=== PATIENT | female | born 1990 | race Caucasian/White ===

== ENCOUNTER 2025-08-30 13:49 | Observation (INO) | payer OTHER, SELFPAY ==
--- NOTE | ~2025-08-30 | CT_ITS ---
Exam: CT abdomen and pelvis with contrast Clinical History: [Upper abdominal pain ] Comparison: [ None available] Technique: Multiple axial CT images of the abdomen and pelvis were obtained with IV contrast. Sagittal and coronal reformatted images were obtained. FINDINGS: Lung bases: [Clear ] Liver: [ No mass.] [ No intrahepatic biliary duct dilatation.] Gallbladder: Cholelithiasis. No gallbladder wall thickening. Common bile duct: [ Normal caliber.] [ No stones.] Spleen: [ Within normal limits.] Pancreas: [ No mass. No pancreatic fluid collection.] Adrenals: [ No masses.] Kidneys: [ No masses. No hydronephrosis.][ ] Lymph nodes: There is an enlarged 2.1 x 2.3 x 3.7 cm left lobe para-aortic lymph node. Stomach, small bowel and colon: Mild thickening of the edwards of the descending colon and sigmoid colon. Peritoneum cavity: [ No mesenteric fat stranding or fluid.] Bladder: [ Unremarkable.] Osseous structures: [ No acute fracture or destructive lesion.] [ Multilevel degenerative change in the visualized spine.] Abdominal aorta: [ No aneurysm.] Additional findings: [ None of significance.] IMPRESSION: 1. There is an enlarged 2.1 x 2.3 x 3.7 cm left low para-aortic lymph node or mass. Differential includes inflammatory/infectious process or malignant process. Consider a PET/CT. 2. Mild thickening of the edwards of the descending and sigmoid colon. Differential includes incomplete bowel wall distention versus colitis. 3. Cholelithiasis. No gallbladder wall thickening or pericholecystic fluid. Reviewed, dictated and finalized at location Q. IMPRESSION: 1. There is an enlarged 2.1 x 2.3 x 3.7 cm left low para-aortic lymph node or m ass. Differential includes inflammatory/infectious process or malignant process . Consider a PET/CT. 2. Mild thickening of the edwards of the descending and sigmoid colon. Differenti al includes incomplete bowel wall distention versus colitis. 3. Cholelithiasis. No gallbladder wall thickening or pericholecystic fluid.
--- NOTE | ~2025-08-30 | US_ITS ---
EXAMINATION: US right upper quadrant DATE: 08/30/2025 20:10 INDICATION: Upper abdominal pain and vomiting TECHNIQUE: Multiple grayscale and Doppler ultrasound images of the abdomen were obtained. COMPARISON: CT dated 08/30/2025 FINDINGS: The pancreatic head and body are normal in appearance. The pancreatic tail is not visualized. The visualized proximal inferior vena cava is normal. Liver has normal echogenicity and contour, with a smooth surface. No liver lesion identified. No intrahepatic biliary duct dilation suspected. Portal venous flow was seen in the hepatopetal, normal direction and has normal Doppler waveform. There is a large shadowing gallstone at the neck of the otherwise normal- appearing gallbladder. This appears to change in position when compared with the CT from 4 hours prior. No abnormal gallbladder wall thickening. No pericholecystic fluid evident on the sonographic images or surrounding inflammatory stranding on the prior CT to elevate suspicion for acute cholecystitis. The common bile duct measures 3 mm, which is normal. Sonographic Greene sign was reported as positive by the tool smith. IMPRESSION: 1. Cholelithiasis with a normal-appearing gallbladder with positive sonographic Greene sign which is equivocal for acute cholecystitis. Consider HIDA scan for further evaluation. Reviewed, dictated and finalized at location A.
[2025-08-30 14:11] VITALS: BP 115/86; PULSE 65; RESP 16; TEMP 36.5; O2SAT 100
--- NOTE | 2025-08-30 14:12 | ED_ITS ---
HPI - Nausea/Vomiting/Diarrhea General Chief complaint: Nausea/Vomiting/Diarrhea <Hai Cobos APRN - Last Filed: 08/30/25 14:14> Stated complaint: N/V-abd pain since 299 <Hai Cobos SENIOR TECHNICAL EDITOR - Last Filed: 08/30/25 14:14> Time Seen by Provider: 08/30/25 19:17 <Hai Cobos APRN - Last Filed: 08/30/25 14:14> Focused HPI: 35 old presents ER complaining of upper abdominal pain began at this morning. States several hours later began experiencing multiple episodes of vomiting. States the most recent episode of passing of pain down small amounts of bile except blood. Denies fevers. States the abdominal pain radiates into her back. GENERAL: Well-appearing, well-nourished, and in no acute distress. HEAD: Normocephalic, atraumatic. CHEST: Clear to auscultation. No respiratory distress. HEART: Regular rate and rhythm. NEURO: Alert and oriented x3. Patient screened in triage and initial orders placed. Additional care and disposition to be based upon diagnostic testing and treatment. <Hai Cobos SENIOR TECHNICAL EDITOR - Last Filed: 08/30/25 14:14> Focused HPI: 35 old presents ER complaining of upper abdominal pain began at this morning. States several hours later began experiencing multiple episodes of vomiting. States the most recent episode of vomiting contained bile and small amounts of blood. Denies fevers. States the abdominal pain radiates into her back. GENERAL: Well-appearing, well-nourished, and in no acute distress. HEAD: Normocephalic, atraumatic. CHEST: Clear to auscultation. No respiratory distress. HEART: Regular rate and rhythm. NEURO: Alert and oriented x3. Patient screened in triage and initial orders placed. Additional care and disposition to be based upon diagnostic testing and treatment. <Suzy Lazaro PA-C - Last Filed: 08/31/25 00:11> Related Data Home medications: Home Medications ?Medication ?Instructions ?Recorded ?Confirmed ?Last Taken ?Type lisdexamfetamine 50 mg capsule 50 mg PO QAM 08/30/25 1 Unknown History medroxyprogesterone 150 mg/mL 150 mg IM [id number] 08/3008/30/25 08/02/25 History intramuscular suspension <Hai Cobos APRN - Last Filed: 08/30/25 14:14> Allergies/Adverse reactions: Allergies Allergy/AdvReac Type Severity Reaction Status Date / Time milk Allergy Unknown Verified 08/31/25 00:00 <Hai Cobos APRN - Last Filed: 08/30/25 14:14> Review of Systems 2 Review of Systems: All systems reviewed & are unremarkable except as noted in HPI and below <Suzy Lazaro PA-C - Last Filed: 08/31/25 00:11> [facility] Past Medical History Medical History: Medical History (Updated 08/31/25 @ 00:11 by Suzy Lazaro PA-C) ADHD GERD (gastroesophageal reflux disease) <Hai Cobos APRN - Last Filed: 08/30/25 14:14> Surgical History Surgical History: Surgical History (Updated 08/30/25 @ 22:13 by Suzy Lazaro PA-C) H/O section <Hai Cobos APRN - Last Filed: 08/30/25 14:14> Social History Social History: Social History Smoking status: Never smoker Alcohol intake: current Drinks per week: 1 Substance use: never Lack of Transportation: No Lack of Food: Never True Current Housing: I Have Housing Concerned About Future Housing: No Difficulty Paying Gas/Electric Bills: No Difficulty Paying for Meds: No Currently Unemployed: No Education: Trade/Vocational Certificate Difficulty w/ Childcare or Family Care: No Spiritual care concerns: No <Hai Cobos APRN - Last Filed: 08/30/25 14:14> Exam 2 Narrative: GENERAL: Well-appearing, well-nourished, and in no acute distress. HEAD: Normocephalic, atraumatic. EYES: EOMI. CHEST: Clear to auscultation. No respiratory distress. No wheezes rales or rhonchi HEART: Regular rate and rhythm. No murmur heard. Normal peripheral pulses. ABDOMEN: Soft, nondistended, normal active bowel sounds. Tender to palpation in the right upper quadrant, without guarding EXTREMITIES: Normal range of motion. No edema. SKIN: Warm, dry, no rash. NEURO: No focal deficits. Alert and oriented x3. PSYCH: Normal mood and affect <Suzy Lazaro PA-C - Last Filed: 08/31/25 00:11> Course Course Emergency Course: patient with continued discomfort after morphine, toradol. will admit for further evaluation/management <Suzy Lazaro PA-C - Last Filed: 08/31/25 00:11> Consultations Consultation #1: Spoke with Dr. Spangler who will consult <Suzy Lazaro PA-C - Last Filed: 08/31/25 00:11> Date: 08/30/25 <DARLEEN Marie Last Filed: 08/31/25 00:11> Consultation #2: Spoke with hospitalist about patient and workup who accepts admission < Suzy Lazaro PA-C - Last Filed: 08/31/25 00:11> Date: 08/30/25 <Suzy Lazaro PA-C - Last Filed: 08/31/25 00:11> Vital Signs Vital signs: Vital Signs Temperature 97.7 F 08/30/25 14:11 Pulse Rate 65 08/30/25 14:11 Respiratory Rate 16 08/30/25 14:11 Blood Pressure 115/86 08/30/25 14:11 Pulse Oximetry 100 08/30/25 14:11 Oxygen Delivery Room Air 08/30/25 14:11 Temperature 97.3 F L 08/30/25 23:46 Pulse Rate 76 08/30/25 23:46 Respiratory Rate 20 08/30/25 23:46 Blood Pressure 100/57 L 08/30/25 23:46 Pulse Oximetry 100 08/30/25 23:46 Oxygen Delivery Room Air 08/30/25 17:34 <Hai Cobos, SENIOR TECHNICAL EDITOR - Last Filed: 08/30/25 14:14> Vital Signs Temperature 97.7 F 08/30/25 14:11 Pulse Rate 65 08/30/25 14:11 Respiratory Rate 16 08/30/25 14:11 Blood Pressure 115/86 08/30/25 14:11 Pulse Oximetry 100 08/30/25 14:11 Oxygen Delivery Room Air 08/30/25 14:11 Temperature 97.3 F L 08/30/25 23:46 Pulse Rate 76 08/30/25 23:46 Respiratory Rate 20 08/30/25 23:46 Blood Pressure 100/57 L 08/30/25 23:46 Pulse Oximetry 100 08/30/25 23:46 Oxygen Delivery Room Air 08/30/25 17:34 <Suzy Lazaro PA-C - Last Filed: 08/31/25 00:11> MDM - Nausea/Vomiting/Diarrhea MDM Narrative Medical decision making narrative: Patient presents the emergency department for upper abdominal pain, nausea vomiting. She is afebrile and nontoxic appearing. Her vitals are stable. CBC with leukocytosis to 14.7. Metabolic panel without concerning findings. Lipase is normal. Urine with 51-100 white blood cells, but many squamous epithelial cells. Patient does not have any urinary symptoms. Will send for culture. CT abdomen and pelvis showing cholelithiasis. Mild wall thickening of the descending and sigmoid colon. Likely incomplete bowel distension, patient does not have any diarrhea. Enlarged para-aortic lymph node. Right upper quadrant ultrasound also showing cholelithiasis, normal appearing gallbladder. Positive sonographic Greene sign. Consider HIDA scan. patient with continued discomfort after morphine, toradol. will admit for further evaluation/management <Suzy Lazaro PA-C - Last Filed: 08/31/25 00:11> Differential Diagnosis Differential diagnosis: Likely food poisoning, gastroenteritis, dehydration and other (biliary colic, pancreatitis) <Suzy Lazaro PA-C - Last Filed: 08/31/25 00:11> Lab Data Attestation: I reviewed the patient's lab results. <Suzy Lazaro PA-C - Last Filed: 08/31/25 00:11> Result diagrams: 08/30/25 16:15 08/30/25 16:15 <Hai Cobos APRN - Last Filed: 08/30/25 14:14> Labs: Lab Results 08/30/25 08/30/25 Range/Units 16:07 16:15 WBC 14.7 H (4.5-10.0) K/mm3 RBC 5.11 (4.2-5.4) M/mm3 Hgb 12.7 (12.0-15.0) g/dL Hct 40.8 (37.0-47.0) % MCV 79.8 L (80-100) fl MCH 24.9 L (26-34) pg MCHC 31.1 L (32-36) g/dl RDW 15.9 H (11.5-14.5) % Plt Count 343 (150-375) k/mm3 MPV 10.6 H (7.4-10.4) fl Immature Gran % (Auto) 0.5 (0-0.5) % Neut % (Auto) 85.9 H (45.5-73.1) % Lymph % (Auto) 10.5 L (18.3-44.2) % [place] % (Auto) 2.5 L (2.6-8.5) % Eos % (Auto) 0.1 (0-4.4) % Baso % (Auto) 0.5 (0.2-1.2) % Lymph # (Auto) 1.54 (0.9-3.2) K/mm3 [place] # (Auto) 0.4 (0.1-0.6) K/mm3 Eos # (Auto) 0.0 (0-0.3) K/mm3 Baso # (Auto) 0.1 (0.0-0.1) K/mm3 Abs Immat Gran (auto) 0.08 H (0.00-0.031) K/mm3 Absolute Neuts (auto) 12.6 H (1.3-6.7) K/mm3 Absolute Nucleated RBC 0.000 (0.0-0.012) K/mm3 Nucleated RBC % 0.0 (0.0-0.2) % Sodium 141 (137-145) mmol/L Potassium 4.3 (3.4-5.0) mmol/L Chloride 107 (98-107) mmol/L Carbon Dioxide 22 (22-30) mmol/L Anion Gap 12 (4-12) mmol/L BUN 9 (7-17) mg/dL Creatinine 0.70 (0.7-1.0) mg/dL Estim Creat Clear Calc 97 ml/min Estimated GFR > 60 (59 - ) Glucose 116 H (65-110) mg/dL Calcium 9.6 (8.4-10.2) mg/dL Total Bilirubin 0.5 (0.2-1.3) mg/dL AST 29 (14-36) U/L ALT 20 (6-35) U/L Alkaline Phosphatase 86 (38-126) U/L Total Protein 9.3 H (6.3-8.2) g/dL Albumin 4.4 (3.5-5.1) g/dL Lipase 65 (23-300) U/L Procalcitonin < 0.0 ng/mL Beta HCG, Quant < 2.39 mIU/ML Urine Color Yellow (Yellow) Urine Appearance Turbid H (Clear) Urine pH 8.5 (5.0-9.0) Ur Specific [place] 1.026 (1.001-1.035) Urine Protein 1+ H (Negative) mg/dL Urine Glucose (UA) Negative (Negative) mg/dL Urine Ketones 2+ H (Negative) mg/dL Ur Blood (Man) Negative (Negative) Urine Nitrate Negative (Negative) Urine Bilirubin Negative (Negative) Urine Urobilinogen 1.0 (<2.0) mg/dL Add Ur Microanalysis Reviewed Leukocyte Esterase Rfl 2+ H (Negative) DYANA/UL Urine RBC 0-2 (0-2) /hpf Urine WBC 51-100 H (0-3) /hpf Ur Squamous Epith Cells Many H (Few) /hpf Urine Bacteria 4+ H /hpf Urine Casts 6-10 POC Urine HCG, Qual Negative (Negative) <Hai Cobos, SENIOR TECHNICAL EDITOR - Last Filed: 08/30/25 14:14> Lab Results 08/30/25 08/30/25 Range/Units 16:07 16:15 WBC 14.7 H (4.5-10.0) K/mm3 RBC 5.11 (4.2-5.4) M/mm3 Hgb 12.7 (12.0-15.0) g/dL Hct 40.8 (37.0-47.0) % MCV 79.8 L (80-100) fl MCH 24.9 L (26-34) pg MCHC 31.1 L (32-36) g/dl RDW 15.9 H (11.5-14.5) % Plt Count 343 (150-375) k/mm3 MPV 10.6 H (7.4-10.4) fl Immature Gran % (Auto) 0.5 (0-0.5) % Neut % (Auto) 85.9 H (45.5-73.1) % Lymph % (Auto) 10.5 L (18.3-44.2) % [place] % (Auto) 2.5 L (2.6-8.5) % Eos % (Auto) 0.1 (0-4.4) % Baso % (Auto) 0.5 (0.2-1.2) % Lymph # (Auto) 1.54 (0.9-3.2) K/mm3 [place] # (Auto) 0.4 (0.1-0.6) K/mm3 Eos # (Auto) 0.0 (0-0.3) K/mm3 Baso # (Auto) 0.1 (0.0-0.1) K/mm3 Abs Immat Gran (auto) 0.08 H (0.00-0.031) K/mm3 Absolute Neuts (auto) 12.6 H (1.3-6.7) K/mm3 Absolute Nucleated RBC 0.000 (0.0-0.012) K/mm3 Nucleated RBC % 0.0 (0.0-0.2) % Sodium 141 (137-145) mmol/L Potassium 4.3 (3.4-5.0) mmol/L Chloride 107 (98-107) mmol/L Carbon Dioxide 22 (22-30) mmol/L Anion Gap 12 (4-12) mmol/L BUN 9 (7-17) mg/dL Creatinine 0.70 (0.7-1.0) mg/dL Estim Creat Clear Calc 97 ml/min Estimated GFR > 60 (59 - ) Glucose 116 H (65-110) mg/dL Calcium 9.6 (8.4-10.2) mg/dL Total Bilirubin 0.5 (0.2-1.3) mg/dL AST 29 (14-36) U/L ALT 20 (6-35) U/L Alkaline Phosphatase 86 (38-126) U/L Total Protein 9.3 H (6.3-8.2) g/dL Albumin 4.4 (3.5-5.1) g/dL Lipase 65 (23-300) U/L Procalcitonin < 0.0 ng/mL Beta HCG, Quant < 2.39 mIU/ML Urine Color Yellow (Yellow) Urine Appearance Turbid H (Clear) Urine pH 8.5 (5.0-9.0) Ur Specific [place] 1.026 (1.001-1.035) Urine Protein 1+ H (Negative) mg/dL Urine Glucose (UA) Negative (Negative) mg/dL Urine Ketones 2+ H (Negative) mg/dL Ur Blood (Man) Negative (Negative) Urine Nitrate Negative (Negative) Urine Bilirubin Negative (Negative) Urine Urobilinogen 1.0 (<2.0) mg/dL Add Ur Microanalysis Reviewed Leukocyte Esterase Rfl 2+ H (Negative) DYANA/UL Urine RBC 0-2 (0-2) /hpf Urine WBC 51-100 H (0-3) /hpf Ur Squamous Epith Cells Many H (Few) /hpf Urine Bacteria 4+ H /hpf Urine Casts 6-10 POC Urine HCG, Qual Negative (Negative) <Suzy Lazaro PA-C - Last Filed: 08/31/25 00:11> Imaging Data Radiologist's impression: ITS Impressions Abdomen/Pelvis CT 08/30/25 16:43 IMPRESSION: 1. There is an enlarged 2.1 x 2.3 x 3.7 cm left low para-aortic lymph node or mass. Differential includes inflammatory/infectious process or malignant process. Consider a PET/CT. 2. Mild thickening of the edwards of the descending and sigmoid colon. Differential includes incomplete bowel wall distention versus colitis. 3. Cholelithiasis. No gallbladder wall thickening or pericholecystic fluid. Upper Quadrant Ultrasound 08/30/25 21:24 IMPRESSION: 1. Cholelithiasis with a normal-appearing gallbladder with positive sonographic Greene sign which is equivocal for acute cholecystitis. Consider HIDA scan for further evaluation. <Suzy Lazaro PA-C - Last Filed: 08/31/25 00:11> Critical Care Time Critical Care Time Critical Care Time: No <Suzy Lazaro PA-C - Last Filed: 08/31/25 00:11> Discharge Plan Discharge Clinical Impression: Right upper quadrant abdominal pain, Lymphadenopathy Cholelithiasis Qualifiers: Cholelithiasis location: gallbladder Cholecystitis presence: without cholecystitis Biliary obstruction: without biliary obstruction Qualified Code(s): K80.20 - Calculus of gallbladder without cholecystitis without obstruction <Hai Cobos APRN - Last Filed: 08/30/25 14:14> Patient Disposition: Still a Patient <Hai Cobos APRN - Last Filed: 08/30/25 14:14> Condition: Stable <Hai Cobos APRN - Last Filed: 08/30/25 14:14>
[2025-08-30 15:55] VITALS: BP 123/80; PULSE 73; RESP 16; O2SAT 100
[2025-08-30] MEDS: ONDANSETRON INJ 4 MG/2 ML VIAL IV PUSH (16:12)
[2025-08-30 16:13] LABS: BEDSIDEPREGUCG Negative (Negative)
[2025-08-30] MEDS: FAMOTIDINE 20 MG/2 ML VIAL IV PUSH (16:14)
[2025-08-30 16:22] LABS: Hematocrit 40.8 % (37.0-47.0); Hemoglobin 12.7 g/dL (12.0-15.0); Immature Granulocyte Percent A 0.5 % (0-0.5); Lymphocytes Absolute Auto 1.54 K/mm3 (0.9-3.2); Mean Corpuscular HGB Conc 31.1 g/dl (32-36); Mean Corpuscular Hemoglobin 24.9 pg (26-34); Mean Corpuscular Volume 79.8 fl (80-100); Nucleated Red Blood Cells Absolute Auto 0.000 K/mm3 (0.0-0.012); Nucleated Red Blood Cells Perc 0.0 % (0.0-0.2); Platelet Count Result 343 k/mm3 (150-375); Red Blood Count 5.11 M/mm3 (4.2-5.4); White Blood Count 14.7 K/mm3 (4.5-10.0)
[2025-08-30 16:31] LABS: Alanine Aminotransferase 20 U/L (6-35); Albumin Level 4.4 g/dL (3.5-5.1); Alkaline Phosphatase 86 U/L (38-126); Anion Gap 12 mmol/L (4-12); Aspartate Amino Transferase 29 U/L (14-36); Bilirubin,Total 0.5 mg/dL (0.2-1.3); Blood Urea Nitrogen 9 mg/dL (7-17); Calcium 9.6 mg/dL (8.4-10.2); Carbon Dioxide 22 mmol/L (22-30); Chloride 107 mmol/L (98-107); Estimated CRCL calculation 97 ml/min; Estimated Glomerular Filt Rate > 60; Glucose 116 mg/dL (65-110); Lipase 65 U/L (23-300); Potassium 4.3 mmol/L (3.4-5.0); Sodium 141 mmol/L (137-145); Total Protein 9.3 g/dL (6.3-8.2)
--- NOTE | 2025-08-30 16:36 | PC.NURSE ---
Pt stating she threw up a couple times and there was specks of blood in it. EDP Hai Cobos APRN made available. Pt vital signs reassessed as well
[2025-08-30 16:37] VITALS: BP 136/86; PULSE 87; RESP 18; TEMP 36.5; O2SAT 100
[2025-08-30 16:47] LABS: Beta HCG Quantitative < 2.39 mIU/ML
[2025-08-30 17:11] LABS: Add Urine Microscopic? YES; Appearance Urine Turbid (Clear); Glucose Urine UA Negative (Negative); Leukocyte Esterase Ur 2+ LEU/UL (Negative); Need Manual Microscopic Reviewed; Nitrate Urine Negative (Negative); Specific Grav Ur 1.026 (1.001-1.035)
[2025-08-30 17:34] VITALS: BP 132/84; PULSE 98; RESP 18; O2SAT 100
[2025-08-30] MEDS: SODIUM CHLORIDE 0.9% IV 1,000 ML 999 ML IV CONT (17:34)
[2025-08-30] MEDS: PANTOPRAZOLE SODIUM IV 40 MG VIAL IV PUSH (19:31)
[2025-08-30] MEDS: MORPHINE SULFATE (*CRX) 4 MG/ML INJ IV PUSH (19:48)
[2025-08-30] MEDS: KETOROLAC 15 MG/ML VIAL (*BKC) IV PUSH (22:01)
[2025-08-30] MEDS: SODIUM CHLORIDE 0.9% IV 1,000 ML 125 ML IV CONT (22:33)
--- NOTE | 2025-08-30 22:46 | P.HP_ITS ---
H&P: HPI History of Present Illness Date/Time: 08/30/25 22:46 Chief Complaint: Right upper quadrant abdominal pain with nausea and vomiting Narrative: 35-year-old female with class 2 obesity, history of and no other abdominal surgeries, GERD with p.r.n. use of omeprazole, ADHD, presents to [facility] ER on 08/30/2025 as she woke up from her sleep with right upper quadrant pain which was severe and associated with nausea and vomiting multiple times. She had a speckle of blood 1 time and since then it has been bilious. Patient had 4 bowel movements today which were soft but no diarrhea otherwise. She denies fever, chest pain, shortness of breath, suprapubic pain, dysuria, foul-smelling or odd appearing urine. ER evaluation reveals a cooperative female who is hemodynamically intact and saturating well on room air. [place] [address], hemoglobin 12.7, platelets 343, Chem 7 panel unremarkable, LFTs within normal limits, beta hCG negative, urinalysis with turbid urine, many squamous cells, WBC, bacteria, leukocyte esterase, ketones. CT abdomen pelvis with contrast demonstrates enlarged para-aortic lymph node or mass, mildly thickened edwards of the descending and sigmoid colon, cholelithiasis, no gallbladder wall thickening or pericholecystic fluid. Subsequently a right upper quadrant ultrasound demonstrates cholelithiasis with positive sonographic Greene sign. She was given Protonix, morphine, Toradol, Zofran, 1 L normal saline bolus, Pepcid 20 mg IV x1. Review of Systems Review of Systems: All systems reviewed & are unremarkable except as noted in HPI and below (Subjective) [facility] Past Medical History Medical History (Updated 08/30/25 @ 22:51 by Arlene Leone MD) ADHD GERD (gastroesophageal reflux disease) Surgical History Surgical History (Updated 08/30/25 @ 22:13 by Suzy Lazaro PA-C) H/O section Meds Home Medications and Allergies Allergies Allergy/AdvReac Type Severity Reaction Status Date / Time No Known Allergies Allergy Verified 08/30/25 13:50 Vital Signs Vital Signs - 24 hr 08/30/25 14:11 08/30/25 15:55 08/30/25 16:37 Temperature 97.7 F 97.7 F Pulse Rate 65 73 87 Respiratory Rate 16 16 18 Blood Pressure 115/86 123/80 136/86 Pulse Oximetry 100 100 100 Oxygen Delivery Room Air 08/30/25 17:34 Temperature Pulse Rate 98 Respiratory Rate 18 Blood Pressure 132/84 Pulse Oximetry 100 Oxygen Delivery Room Air Exam Const: General: comfortable and no acute distress HENMT: Mouth: Yes moist mucous membranes Eyes: Pupils: Equal, round and reactive pupils present Neck: Neck: supple Resp: Effort & Inspection: normal respiratory effort Auscultation: clear to auscultation bilaterally Cardio: Rate: regular rate Rhythm: regular rhythm Heart sounds: no gallops and no murmurs GI: Inspection: non-distended GI Palp: Yes Soft to palpation and No Guarding due to palpation present (GI) Other: Hypoactive bowel sounds, positive Greene sign Extrem: General: no edema H&P: Results Labs Labs: Short CBC 08/30/25 Range/Units 16:15 WBC 14.7 H (4.5-10.0) K/mm3 Hgb 12.7 (12.0-15.0) g/dL Hct 40.8 (37.0-47.0) % Plt Count 343 (150-375) k/mm3 BMP 08/30/25 16:15 Sodium 141 Potassium 4.3 Chloride 107 Carbon Dioxide 22 BUN 9 Creatinine 0.70 Glucose 116 H Calcium 9.6 Liver Function 08/30/25 Range/Units 16:15 Total Bilirubin 0.5 (0.2-1.3) mg/dL AST 29 (14-36) U/L ALT 20 (6-35) U/L Alkaline Phosphatase 86 (38-126) U/L Albumin 4.4 (3.5-5.1) g/dL Urine 08/30/25 Range/Units 16:15 Urine Color Yellow (Yellow) Urine Appearance Turbid H (Clear) Urine pH 8.5 (5.0-9.0) Ur Specific [place] 1.026 (1.001-1.035) Urine Protein 1+ H (Negative) mg/dL Urine Glucose (UA) Negative (Negative) mg/dL Assessment and Plan Assessment and plan (1) Cholelithiasis: Code(s): K80.20 - Calculus of gallbladder without cholecystitis without obstruction Status: Acute (2) Right upper quadrant abdominal pain: Code(s): R10.11 - Right upper quadrant pain Status: Acute (3) Enlarged lymph node: Code(s): R59.9 - Enlarged lymph nodes, unspecified Status: Acute Plan 35-year-old female with class 2 obesity, history of and no other abdominal surgeries, GERD with p.r.n. use of omeprazole, ADHD, presents to [facility] ER on 08/30/2025 as she woke up from her sleep with right upper quadrant pain which was severe and associated with nausea and vomiting multiple times. She had a speckle of blood 1 time and since then it has been bilious. Patient had 4 bowel movements today which were soft but no diarrhea otherwise. She denies fever, chest pain, shortness of breath, suprapubic pain, dysuria, foul-smelling or odd appearing urine. ER evaluation reveals a cooperative female who is hemodynamically intact and saturating well on room air. [place] [address], hemoglobin 12.7, platelets 343, Chem 7 panel unremarkable, LFTs within normal limits, beta hCG negative, urinalysis with turbid urine, many squamous cells, WBC, bacteria, leukocyte esterase, ketones. CT abdomen pelvis with contrast demonstrates enlarged para-aortic lymph node or mass, mildly thickened edwards of the desce nding and sigmoid colon, cholelithiasis, no gallbladder wall thickening or pericholecystic fluid. Subsequently a right upper quadrant ultrasound demonstrates cholelithiasis with positive sonographic Greene sign. She was given Protonix, morphine, Toradol, Zofran, 1 L normal saline bolus, Pepcid 20 mg IV x1. ----- I requested General surgery be willing to consult on this patient prior to admission. NPO midnight. HIDA scan. Morphine 2 mg IV q.2 hours p.r.n.. Normal saline at 125 cc/hour. Protonix 40 mg IV q.a.m.. Zofran p.r.n. She had 4 soft stools on day of admission, possible colitis identified on CT. Continue to monitor. Urinalysis is greatly contaminated. Follow-up on urine culture or repeat urinalysis, the patient has no symptomatology to indicate infection. Leukocytosis may be reactive to dehydration or nausea or vomiting, check procalcitonin, if elevated will start antibiotics. Follow-up on para-aortic lymph node enlargement/mass. ----- Up ad bev NPO. Normal saline infusion SCDs. Patient would like to be full code Admit for observation to medical floor. Hospitalist [facility] Advance Care Plan I have confirmed that the patient's Advanced Care Plan is present, code status is documented, or surrogate decision maker is listed in patient medical record.: Yes Medication Reconciliation I have utilized all available resources to obtain, update and review the patients current medications (includes all prescriptions, OTC, herbals, cannabis, and nutritional supplements).: Yes
[2025-08-30] MEDS: MORPHINE SULFATE (*CRX) 4 MG/ML INJ 2 MG IV PUSH (23:27)
[2025-08-30 23:33] LABS: Procalcitonin < 0.0 ng/mL
[2025-08-30 23:40] VITALS: BMI 35.2
--- NOTE | 2025-08-30 23:42 | ADMGEN ---
This patient, Lisandra Pham, was admitted to Medical Room 244-. Patient/family oriented to hospital policies and general routines including ID bracelet, bed and alarms, visiting hours, pain management, procedures, bathroom and other care routines, personal items, smoking policy, room service/diet, and visiting hours. Information on how to activate the Rapid Response Team has been discussed. Patient/Family are encouraged to report perceived risks to care and to ask questions if they do not understand what they are told or what they should do.
[2025-08-30 23:46] VITALS: BP 100/57; PULSE 76; RESP 20; TEMP 36.3; O2SAT 100
[2025-08-31] VITALS (14 sets, daily range): BP systolic 102–128; BP diastolic 57–80; PULSE 69–115; RESP 18–24; TEMP 36.2–36.7; O2SAT 97–100
[2025-08-31] MEDS: MORPHINE SULFATE (*CRX) 4 MG/ML INJ 2 MG IV PUSH ×2 (05:05→10:41)
[2025-08-31] MEDS: SODIUM CHLORIDE 0.9% IV 1,000 ML 125 ML IV CONT ×2 (05:08→13:31)
[2025-08-31 05:11] LABS: Hematocrit 33.3 % (37.0-47.0); Hemoglobin 10.1 g/dL (12.0-15.0); Immature Granulocyte Percent A 0.4 % (0-0.5); Lymphocytes Absolute Auto 3.00 K/mm3 (0.9-3.2); Mean Corpuscular HGB Conc 30.3 g/dl (32-36); Mean Corpuscular Hemoglobin 24.7 pg (26-34); Mean Corpuscular Volume 81.4 fl (80-100); Nucleated Red Blood Cells Absolute Auto 0.000 K/mm3 (0.0-0.012); Nucleated Red Blood Cells Perc 0.0 % (0.0-0.2); Platelet Count Result 260 k/mm3 (150-375); Red Blood Count 4.09 M/mm3 (4.2-5.4); White Blood Count 13.1 K/mm3 (4.5-10.0)
[2025-08-31 05:42] LABS: Alanine Aminotransferase 17 U/L (6-35); Albumin Level 3.3 g/dL (3.5-5.1); Alkaline Phosphatase 64 U/L (38-126); Anion Gap 7 mmol/L (4-12); Aspartate Amino Transferase 23 U/L (14-36); Bilirubin,Total 0.6 mg/dL (0.2-1.3); Blood Urea Nitrogen 9 mg/dL (7-17); Calcium 8.5 mg/dL (8.4-10.2); Carbon Dioxide 21 mmol/L (22-30); Chloride 111 mmol/L (98-107); Estimated CRCL calculation 109 ml/min; Estimated Glomerular Filt Rate > 60; Glucose 99 mg/dL (65-110); Magnesium 1.9 mg/dL (1.6-2.3); Potassium 3.7 mmol/L (3.4-5.0); Sodium 139 mmol/L (137-145); Total Protein 6.6 g/dL (6.3-8.2)
[2025-08-31 06:20] LABS: Procalcitonin 0.0 ng/mL
--- NOTE | 2025-08-31 08:17 | P.PNIM_ITS ---
Progress Note: A&P Assessment and Plan (1) Cholelithiasis: Qualifiers: Biliary obstruction: without biliary obstruction Cholecystitis presence: without cholecystitis Cholelithiasis location: gallbladder Qualified Code(s): K80.20 - Calculus of gallbladder without cholecystitis without obstruction Code(s): K80.20 - Calculus of gallbladder without cholecystitis without obstruction Status: Acute Assessment and Plan: NPO midnight. HIDA scan. Morphine 2 mg IV q.2 hours p.r.n.. Normal saline at 125 cc/hour. Protonix 40 mg IV q.a.m.. Zofran p.r.n. 08/31: Per pt, surgery team to perform lap hailey this afternoon. HIDA cancelled. +RUQ pain, denies N/V. (2) Right upper quadrant abdominal pain: Code(s): R10.11 - Right upper quadrant pain Status: Acute Assessment and Plan: See above She had 4 soft stools on day of admission, possible colitis identified on CT. Continue to monitor. 08/31: +Greene's sign (3) Enlarged lymph node: Code(s): R59.9 - Enlarged lymph nodes, unspecified Status: Acute Assessment and Plan: Follow-up on para-aortic lymph node enlargement/mass outpatient. Plan Urinalysis is greatly contaminated. Follow-up on urine culture or repeat urinalysis, the patient has no symptomatology to indicate infection. Leukocytosis may be reactive to dehydration or nausea or vomiting, check procalcitonin, if elevated will start antibiotics. -->Procalcitonin negative Up ad bev NPO. Normal saline infusion SCDs. Patient would like to be full code Admit for observation to medical floor. Time Spent With Patient Time: 35 Subjective Date/time seen: 08/31/25 1320 Interval history: 35-year-old female with class 2 obesity, history of and no other abdominal surgeries, GERD with p.r.n. use of omeprazole, ADHD, presents to [facility] ER on 08/30/2025 as she woke up from her sleep with right upper quadrant pain which was severe and associated with nausea and vomiting multiple times. She had a speckle of blood 1 time and since then it has been bilious. Patient had 4 bowel movements today which were soft but no diarrhea otherwise. She denies fever, chest pain, shortness of breath, suprapubic pain, dysuria, foul-smelling or odd appearing urine. ER evaluation reveals a cooperative female who is hemodynamically intact and saturating well on room air. [place] [address], hemoglobin 12.7, platelets 343, Chem 7 panel unremarkable, LFTs within normal limits, beta hCG negative, urinalysis with turbid urine, many squamous cells, WBC, bacteria, leukocyte esterase, ketones. CT abdomen pelvis with contrast demonstrates enlarged para-aortic lymph node or mass, mildly thickened edwards of the descending and sigmoid colon, cholelithiasis, no gallbladder wall thickening or pericholecystic fluid. Subsequently a right upper quadrant ultrasound demonstrates cholelithiasis with positive sonographic Greene sign. She was given Protonix, morphine, Toradol, Zofran, 1 L normal saline bolus, Pepcid 20 mg IV x1. 08/31: Pt resting in bed when I entered the room. Pt continues to c/o RUQ pain especially TTP, but not nearly as bad as at the onset of the pain yesterday. Denies nausea/vomiting. Surgery team to take her to surgery this afternoon for a lap hailey. Review of Systems Review of Systems: All systems reviewed & are unremarkable except as noted in HPI and below (Subjective) Exam Const: General: comfortable and no acute distress HENMT: Other: tacky mucous membranes Eyes: Pupils: Equal, round and reactive pupils present Neck: Neck: supple Carotids: no bruits Resp: Effort & Inspection: normal respiratory effort Auscultation: clear to auscultation bilaterally Cardio: Rate: regular rate Rhythm: regular rhythm Heart sounds: no gallops and no murmurs GI: Inspection: non-distended Other: Hypoactive bowel sounds, positive Greene sign Skin: General skin exam: normal color and no rashes or lesions noted Wounds: no wounds Neuro: Cranial nerves: Yes Equal, round and reactive pupils present Speech: normal speech Motor exam (neuro): Normal motor muscle tone present throughout Sensory Exam: normal sensation Extrem: General: no edema Psych: Mental Status: mental status grossly normal Affect: normal affect Objective Data Vital Signs Vital Signs: Vital Signs - 24 hr 08/30/25 14:11 08/30/25 15:55 08/30/25 16:37 Temperature 97.7 F 97.7 F Pulse Rate 65 73 87 Respiratory Rate 16 16 18 Blood Pressure 115/86 123/80 136/86 Pulse Oximetry 100 100 100 Oxygen Delivery Room Air 08/30/25 17:34 08/30/25 23:46 08/31/25 04:00 Temperature 97.3 F L 98.0 F Pulse Rate 98 76 69 Respiratory Rate 18 20 20 Blood Pressure 132/84 100/57 L 108/59 L Pulse Oximetry 100 100 99 Oxygen Delivery Room Air Intake/Output Intake/Output: Intake & Output 08/28/25 08/29/25 08/30/25 08/31/25 23:59 23:59 23:59 23:59 Intake Total 1000 822.9 Output Total 100 Balance 1000 722.9 Meds/Results Medications: Active Medications Generic Name Dose Route Start Last Admin Trade Name Freq PRN Reason Stop Dose Admin Sodium Chloride 1,000 mls @ 125 mls/hr 08/30/25 22:20 08/31/25 05:08 Normal Saline Iv IV CONT 125 mls/hr .Q8H MANNY Administration Morphine Sulfate 2 mg 08/30/25 22:46 08/31/25 05:05 Morphine Sulfate (*Crx) 4 Mg/Ml Inj IV PUSH 2 mg Q2H PRN Administration Pain Rated 7-10 Ondansetron HCl 4 mg 08/30/25 22:52 Ondansetron Inj 4 Mg/2 Ml Vial IV PUSH Q4H PRN Nausea And Vomiting Pantoprazole Sodium 40 mg 08/31/25 09:00 Pantoprazole Sodium Iv 40 Mg Vial IV PUSH QAM [facility] Radiology Results: ITS Impressions Abdomen/Pelvis CT 08/30/25 16:43 IMPRESSION: 1. There is an enlarged 2.1 x 2.3 x 3.7 cm left low para-aortic lymph node or mass. Differential includes inflammatory/infectious process or malignant process. Consider a PET/CT. 2. Mild thickening of the edwards of the descending and sigmoid colon. Differential includes incomplete bowel wall distention versus colitis. 3. Cholelithiasis. No gallbladder wall thickening or pericholecystic fluid. Upper Quadrant Ultrasound 08/30/25 21:24 IMPRESSION: 1. Cholelithiasis with a normal-appearing gallbladder with positive sonographic Greene sign which is equivocal for acute cholecystitis. Consider HIDA scan for further evaluation. Labs Labs: Laboratory Results - last 24 hr 08/30/25 08/30/25 08/31/25 16:07 16:15 04:26 WBC 14.7 H 13.1 H RBC 5.11 4.09 L Hgb 12.7 10.1 L Hct 40.8 33.3 L MCV 79.8 L 81.4 MCH 24.9 L 24.7 L MCHC 31.1 L 30.3 L RDW 15.9 H 15.9 H Plt Count 343 260 MPV 10.6 H 11.2 H Immature Gran % (Auto) 0.5 0.4 Neut % (Auto) 85.9 H 69.6 Lymph % (Auto) 10.5 L 23.0 [place] % (Auto) 2.5 L 5.9 Eos % (Auto) 0.1 0.6 Baso % (Auto) 0.5 0.5 Lymph # (Auto) 1.54 3.00 [place] # (Auto) 0.4 0.8 H Eos # (Auto) 0.0 0.1 Baso # (Auto) 0.1 0.1 Abs Immat Gran (auto) 0.08 H 0.05 H Absolute Neuts (auto) 12.6 H 9.1 H Absolute Nucleated RBC 0.000 0.000 Nucleated RBC % 0.0 0.0 Sodium 141 139 Potassium 4.3 3.7 Chloride 107 111 H Carbon Dioxide 22 21 L Anion Gap 12 7 BUN 9 9 Creatinine 0.70 0.62 L Estim Creat Clear Calc 97 109 Estimated GFR > 60 > 60 Glucose 116 H 99 Calcium 9.6 8.5 Magnesium 1.9 Total Bilirubin 0.5 0.6 AST 29 23 ALT 20 17 Alkaline Phosphatase 86 64 Total Protein 9.3 H 6.6 Albumin 4.4 3.3 L Lipase 65 Procalcitonin < 0.0 0.0 Beta HCG, Quant < 2.39 Urine Color Yellow Urine Appearance Turbid H Urine pH 8.5 Ur Specific [place] 1.026 Urine Protein 1+ H Urine Glucose (UA) Negative Urine Ketones 2+ H Ur Blood (Man) Negative Urine Nitrate Negative Urine Bilirubin Negative Urine Urobilinogen 1.0 Add Ur Microanalysis Reviewed Leukocyte Esterase Rfl 2+ H Urine RBC 0-2 Urine WBC 51-100 H Ur Squamous Epith Cells Many H Urine Bacteria 4+ H Urine Casts 6-10 POC Urine HCG, Qual Negative Quality VTE Prophylaxis VTE prophylaxis: mechanical ordered
[2025-08-31] MEDS: PANTOPRAZOLE SODIUM IV 40 MG VIAL IV PUSH (09:11)
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
--- NOTE | 2025-08-31 13:10 | PC.NURSE ---
Report called to Cat RN in Preop.
--- NOTE | 2025-08-31 13:30 | PC.NURSE ---
On 08/31/25, the student, [Jakub Kate], provided care and completed [facility] documentation on this patient. I have reviewed the student's documentation and agree with the findings.
--- NOTE | 2025-08-31 14:07 | PC.NURSE ---
To OR via wheelchair. Voiding without difficulty.
[2025-08-31] MEDS: LACTATED RINGERS 1,000 ML 30 ML IV CONT ×3 (14:15→17:21)
--- NOTE | 2025-08-31 15:30 | WPDHPUPDATE1 ---
History and Physical Update Update Date/Time: 08/31/25 15:30 History and Physical has been reviewed, including an updated exam of the patient. There are NO changes in the patient's condition. Risks, benefits, and alternatives have been discussed and questions answered. Patient agrees to proceed with procedure. Dr. Spangler is tied up and will not be able to proceed with pt's lap hailey without significant delay. He asked me to proceed with the lap hailey. I introduced myself to the patient and explained the circumstances and she is ok with me performing her lap hailey, possible open hailey. Risks, benefits, indications, and expected outcomes were discussed with the patient and/or family members. Specific risks to include bleeding and possible need for blood transfusion, infection, bile leak, injury to other organs, common bile duct injury, and conversion to open cholecystectomy has been discussed. I have answered all their questions and they agreed to proceed with surgery as outlined above.
--- NOTE | 2025-08-31 15:33 | WPDANESEPPF ---
Anes - Initial Pre Proc Eval Procedure: Operation Date: 08/31/25 15:30 Proposed Procedures p Laparoscopic Cholecystectomy - Ludy Spangler MD Date/Time: 08/31/25 15:33 Surgeon: Arlene Leone MD Pre Op Diagnosis: Right upper quadrant abdominal pain Patient Data Age: 35 Gender: F Height: 1.57 m Weight: 87.5 kg Last Vital Signs Temp 36.4 C 08/31/25 14:15 Pulse 75 08/31/25 14:15 Resp 18 08/31/25 14:15 BP 121/80 08/31/25 14:15 Pulse Ox 100 08/31/25 14:15 O2 Del Method Room Air 08/31/25 14:15 Allergies Allergy/AdvReac Type Severity Reaction Status Date / Time milk Allergy Unknown Verified 08/31/25 00:00 Home Medications ?Medication ?Instructions ?Recorded ?Confirmed ?Type lisdexamfetamine 50 mg capsule 50 mg PO QAM 08/30/25 08/30/25 History medroxyprogesterone 150 mg/mL 150 mg IM [id number] 08/30/25 08/30/25 History intramuscular suspension Laboratory Tests 08/30/25 08/30/25 08/31/25 16:07 16:15 04:26 WBC 14.7 H K/mm3 13.1 H K/mm3 (4.5-10.0) (4.5-10.0) RBC 5.11 M/mm3 4.09 L M/mm3 (4.2-5.4) (4.2-5.4) Hgb 12.7 g/dL 10.1 L g/dL (12.0-15.0) (12.0-15.0) Hct 40.8 % 33.3 L % (37.0-47.0) (37.0-47.0) MCV 79.8 L fl 81.4 fl (80-100) (80-100) MCH 24.9 L pg 24.7 L pg (26-34) (26-34) MCHC 31.1 L g/dl 30.3 L g/dl (32-36) (32-36) RDW 15.9 H % 15.9 H % (11.5-14.5) (11.5-14.5) Plt Count 343 k/mm3 260 k/mm3 (150-375) (150-375) MPV 10.6 H fl 11.2 H fl (7.4-10.4) (7.4-10.4) Immature Gran % (Auto) 0.5 % 0.4 % (0-0.5) (0-0.5) Neut % (Auto) 85.9 H % 69.6 % (45.5-73.1) (45.5-73.1) Lymph % (Auto) 10.5 L % 23.0 % (18.3-44.2) (18.3-44.2) [place] % (Auto) 2.5 L % 5.9 % (2.6-8.5) (2.6-8.5) Eos % (Auto) 0.1 % 0.6 % (0-4.4) (0-4.4) Baso % (Auto) 0.5 % 0.5 % (0.2-1.2) (0.2-1.2) Lymph # (Auto) 1.54 K/mm3 3.00 K/mm3 (0.9-3.2) (0.9-3.2) [place] # (Auto) 0.4 K/mm3 0.8 H K/mm3 (0.1-0.6) (0.1-0.6) Eos # (Auto) 0.0 K/mm3 0.1 K/mm3 (0-0.3) (0-0.3) Baso # (Auto) 0.1 K/mm3 0.1 K/mm3 (0.0-0.1) (0.0-0.1) Abs Immat Gran (auto) 0.08 H K/mm3 0.05 H K/mm3 (0.00-0.031) (0.00-0.031) Absolute Neuts (auto) 12.6 H K/mm3 9.1 H K/mm3 (1.3-6.7) (1.3-6.7) Absolute Nucleated RBC 0.000 K/mm3 0.000 K/mm3 (0.0-0.012) (0.0-0.012) Nucleated RBC % 0.0 % 0.0 % (0.0-0.2) (0.0-0.2) Sodium 141 mmol/L 139 mmol/L (137-145) (137-145) Potassium 4.3 mmol/L 3.7 mmol/L (3.4-5.0) (3.4-5.0) Chloride 107 mmol/L 111 H mmol/L (98-107) (98-107) Carbon Dioxide 22 mmol/L 21 L mmol/L (22-30) (22-30) Anion Gap 12 mmol/L 7 mmol/L (4-12) (4-12) BUN 9 mg/dL 9 mg/dL (7-17) (7-17) Creatinine 0.70 mg/dL 0.62 L mg/dL (0.7-1.0) (0.7-1.0) Estim Creat Clear Calc 97 ml/min 109 ml/min Estimated GFR > 60 > 60 (59 - ) (59 - ) Glucose 116 H mg/dL 99 mg/dL (65-110) (65-110) Calcium 9.6 mg/dL 8.5 mg/dL (8.4-10.2) (8.4-10.2) Magnesium 1.9 mg/dL (1.6-2.3) Total Bilirubin 0.5 mg/dL 0.6 mg/dL (0.2-1.3) (0.2-1.3) AST 29 U/L 23 U/L (14-36) (14-36) ALT 20 U/L 17 U/L (6-35) (6-35) Alkaline Phosphatase 86 U/L 64 U/L (38-126) (38-126) Total Protein 9.3 H g/dL 6.6 g/dL (6.3-8.2) (6.3-8.2) Albumin 4.4 g/dL 3.3 L g/dL (3.5-5.1) (3.5-5.1) Lipase 65 U/L (23-300) Procalcitonin < 0.0 ng/mL 0.0 ng/mL Beta HCG, Quant < 2.39 mIU/ML Urine Color Yellow (Yellow) Urine Appearance Turbid H (Clear) Urine pH 8.5 (5.0-9.0) Ur Specific [place] 1.026 (1.001-1.035) Urine Protein 1+ H mg/dL (Negative) Urine Glucose (UA) Negative mg/dL (Negative) Urine Ketones 2+ H mg/dL (Negative) Ur Blood (Man) Negative (Negative) Urine Nitrate Negative (Negative) Urine Bilirubin Negative (Negative) Urine Urobilinogen 1.0 mg/dL (<2.0) Add Ur Microanalysis Reviewed Leukocyte Esterase Rfl 2+ H DYANA/UL (Negative) Urine RBC 0-2 /hpf (0-2) Urine WBC 51-100 H /hpf (0-3) Ur Squamous Epith Cells Many H /hpf (Few) Urine Bacteria 4+ H /hpf Urine Casts 6-10 POC Urine HCG, Qual Negative (Negative) Patient hx anesthesia problems: none Family hx anesthesia problems: none Results Review: All pre-operative results and documents have been reviewed as part of the pre-operative evaluation. [facility] Past Medical History Medical History (Updated 08/31/25 @ 00:11 by Suzy Lazaro PA-C) ADHD GERD (gastroesophageal reflux disease) Surgical History Surgical History (Updated 08/30/25 @ 22:13 by Suzy Lazaro PA-C) H/O section Family History Family History (Updated 08/31/25 @ 10:05 by Angie Truong RN) Mother Thyroid disease ACD (adult celiac disease) Sibling Thyroid disease Social History Social History Smoking status: Never smoker Alcohol intake: current Drinks per week: 1 Substance use: never Lack of Transportation: No Lack of Food: Never True Current Housing: I Have Housing Concerned About Future Housing: No Difficulty Paying Gas/Electric Bills: No Difficulty Paying for Meds: No Currently Unemployed: No Education: Trade/Vocational Certificate Difficulty w/ Childcare or Family Care: No Spiritual care concerns: No Anes - Eval Final PreProcedure Day of Procedure 08/31/25 15:33 Patient weight: obese Heart: regular rate and rhythm Lungs: clear to auscultation Airway: Mallampati scale class II Neurological: alert and oriented Last oral intake: >/= 8 hours ASA classification: II Emergent: no Anesthetic plan: proceed Anesthesia type and monitoring: general ETT and standard monitoring Results Review: All pre-operative results and documents have been reviewed as part of the pre-operative evaluation. Informed Consent: The patient's anesthetic plan and its attendant risks and benefits were discussed with the patient/family/POA. Questions were solicited and answers provided to the satisfaction of the patient/family/POA.
[2025-08-31] MEDS: ceFAZolin 2 GM in SODIUM CHLORIDE 0.9% IV 50 ML 100 ML IVPB (15:50)
[2025-08-31] MEDS: LIDO 1%/EPINEPHRINE 1:100,000 20 ML VIAL 30 ML INFILTRATE (16:09)
--- NOTE | 2025-08-31 16:46 | S_PTH ---
PATIENT: Lisandra Pham LOC: [id number] U#:[id number] AGE/SX: 35/F ROOM: 244 RE08/30/[address]: Arlene Leone MD : [id number] BED: 01 DIS: 09/01/2025 SPEC #: [id number] RECD: 09/01/25 10:46 STATUS: LISA REQ #: [id number] ТАТЬЯНА: 08/31/25 16:[address]: Larry Melvin DEPT: [facility] Surgical RECD BY: Krysten Perez ENTERED: 09/01/25 10:46 SP TYPE: Surgical OTHR DR: MD Ludy Munroe MD Jim J. Hong, MD SENIOR SOFTWARE ENGINEER ANALYTICS PHYSICIAN Meron Pham APRN Tissues: A - Gallbladder Procedures: Hematoxylin and Eosin Stain Gross and Microscopic Level 3
[2025-08-31] MEDS: fentaNYL CITRATE INJ (*CRX) 100 MCG/2 ML VIAL 25 MCG IV PUSH ×6 (17:28→18:10)
--- NOTE | 2025-08-31 17:34 | W.PM.PROC2 ---
Procedure Note - Detailed Date of Procedure 08/31/25 Pre-op Diagnosis Right upper quadrant abdominal pain, acute cholecystitis secondary to cholelithiasis Post-op Diagnosis Same Procedure Performed Laparoscopic cholecystectomy Surgeon Larry Melvin MD Hog Stomach Preparer Graham Jamison SA Anesthesia General Indications Patient is a 35-year-old female presents to the emergency room yesterday with several-day history of pain which were particularly became worse yesterday associated with some nausea and emesis. Imaging showed cholelithiasis but no obvious evidence of pericholecystic fluid or gallbladder wall thickening. Liver enzymes are normal. She a likely has acute cholecystitis and cholelithiasis and presents now for laparoscopic cholecystectomy. Findings Patient acutely inflamed gallbladder. It was tense with edema and erythema of the gallbladder wall. The gallbladder had to be decompressed laparoscopically before I could hold the gallbladder laparoscopic grasper. Multiple gallstones within the gallbladder. There were gallstones impacted within the neck of the gallbladder. Description of Procedure After informed consent was obtained patient brought to the operating room she was placed supine position and general endotracheal anesthesia was administered. The abdomen was then prepped and draped usual sterile fashion. A time-out was then performed correctly identifying the patient as well as procedure to be performed. She was given IV antibiotics. I then entered the abdomen left upper quadrant utilizing a 5mm Optiview port. Once inside the abdomen insufflated to adequate pneumoperitoneum of 15mmHg of CO2. I then placed additional trocar ports to include a 5mm periumbilical trocar port, a 10mm epigastric trocar port, and 2 right lateral subcostal 5mm trocar ports. The gallbladder was visualized and the gallbladder wall was edematous and erythematous. It was tense. This definitely was consistent with acute cholecystitis due to gallstones. There were some and omental adhesions to the gallbladder wall as well. A laparoscopic decompressing aspirating needle was then introduced into the abdomen through the most lateral right subcostal port site and then the dome of the gallbladder was punctured with needle. Dark green thick bile was aspirated from the gallbladder into a decompressed enough for me to grab it with a laparoscopic grasper. The gallbladder was then elevated over the right half liver towards the right shoulder. I then proceeded to strip down the omental adhesions to the gallbladder and then stripped down the visceral peritoneum off of the infundibular gallbladder in order to hold with a 2nd laparoscopic grasper to it there with lateral traction infundibulum of the gallbladder I was able to dissect down identified the cystic duct. The cystic duct was then dissected out circumferentially. The cystic artery had a anterior and posterior branch and both these branches were dissected out individually. Posterior wall the gallbladder at this point was then dissected free of the liver bed until the critical view was obtained. At this point I then milked the cystic duct to make sure there were no stones within it and the gallstones within the neck of the gallbladder were reduced. I then placed 2 clips proximally cystic duct and 2 clips distally high on infundibular gallbladder. Cystic duct was then divided Endo Yong. The anterior posterior branches cystic artery was then clipped individually and then divided as well. Gallbladder was then resected off the liver utilized electrocautery. During the dissection the posterior wall the gall bladder was entered and multiple stones spilled out the gallbladder. These were quickly captured with the stone grasper and removed from the abdomen. As I continued my dissection of the posterior wall the gallbladder off the liver there was not a good dissection plane due to the intense inflammation in the area. A portion of the posterior wall the gallbladder was left in place and the remaining portion the gallbladder was removed. Gallbladder was then placed into an Endo-Catch bag and brought out through the epigastric port site. It was passed off table sent to pathology along with the gallstones. The residual portion of the posterior wall the gallbladder and the liver bed was then fulgurated with electrocautery to obliterate the mucosa. Once this is done there was no bleeding and there is no evidence of bile leak from the liver bed or the cystic duct stump. I then aspirated the fluid from the right upper quadrant the abdomen all the blood clot. I then irrigated with copious sterile saline solution. Hemostasis was good. Then aspirated the fluid from the right upper quadrant and from the pelvis. I then placed a 15 Stateless round Roberto drain in the area the gallbladder fossa. It was brought out through the most lateral 5mm right subcostal port site. It was then secured to the skin level utilizing a 3-0 nylon sutures. I then placed Von hemostatic topical agent onto the liver bed with a laparoscopic applicator. I then removed all the trocar ports under direct visualization all port sites appeared hemostatic. The abdomen was allowed to decompress. The port sites irrigated sterile saline solution hemostasis was good. The 10mm epigastric trocar port fascial defect was closed utilizing 0 Vicryl suture at the fascial level. The port sites at the skin level were then all closed utilizing a running subcuticular 4 Monocryl suture. The incisions were then cleaned the skin glue was applied. The drain was placed to after grenade bulb suction and a drain dressing was placed. The patient tolerated the procedure well no complications. All sponges, needles, and instrument counts were correct at the end procedure. EBL was _50__cc. The patient was awakened and taken to recovery in stable and satisfactory condition. Implants None Estimated Blood Loss 50 Urine Output 100 Drains Yes (10 Stateless round ANTOINETTE drain right upper quadrant x1) Packing No Pathology Yes (Gallbladder and stones sent to pathology) Complications No immediate complications Condition Stable Disposition PACU [facility] Billing Surgery - Charge Forward: Surgery Billing
[2025-08-31] MEDS: HYDROmorphone HCL INJ (*CRX) 1 MG/ML SYR 0.5 MG IV PUSH (18:13)
[2025-08-31] MEDS: PIPERACILLIN/TAZOBACTAM SOD 3.375 GM in SODIUM CHLORIDE 0.9% IV 50 ML 100 ML IVPB (18:15)
--- NOTE | 2025-08-31 18:40 | PC.NURSE ---
Returned from OR via stretcher. Family at bedside.
[2025-08-31] MEDS: oxyCODONE HCL (*CRX) 5 MG TAB IR PO (20:18)
[2025-09-01] VITALS: BP 105/59; PULSE 77; RESP 18; TEMP 36.6; O2SAT 99
[2025-09-01] MEDS: oxyCODONE HCL (*CRX) 5 MG TAB IR PO ×4 (00:45→17:51)
[2025-09-01] MEDS: SODIUM CHLORIDE 0.9% IV 1,000 ML 100 ML IV CONT (00:45)
[2025-09-01] MEDS: PIPERACILLIN/TAZOBACTAM SOD 3.375 GM in SODIUM CHLORIDE 0.9% IV 50 ML 100 ML IVPB ×2 (00:46→09:26)
[2025-09-01 04:00] VITALS: BP 131/79; PULSE 66; RESP 18; TEMP 36.4; O2SAT 100
[2025-09-01 05:24] LABS: Hematocrit 33.1 % (37.0-47.0); Hemoglobin 10.1 g/dL (12.0-15.0); Immature Granulocyte Percent A 0.4 % (0-0.5); Lymphocytes Absolute Auto 1.49 K/mm3 (0.9-3.2); Mean Corpuscular HGB Conc 30.5 g/dl (32-36); Mean Corpuscular Hemoglobin 24.8 pg (26-34); Mean Corpuscular Volume 81.1 fl (80-100); Nucleated Red Blood Cells Absolute Auto 0.000 K/mm3 (0.0-0.012); Nucleated Red Blood Cells Perc 0.0 % (0.0-0.2); Platelet Count Result 257 k/mm3 (150-375); Red Blood Count 4.08 M/mm3 (4.2-5.4); White Blood Count 9.4 K/mm3 (4.5-10.0)
[2025-09-01 05:34] LABS: Alanine Aminotransferase 21 U/L (6-35); Albumin Level 3.4 g/dL (3.5-5.1); Alkaline Phosphatase 60 U/L (38-126); Anion Gap 10 mmol/L (4-12); Aspartate Amino Transferase 27 U/L (14-36); Bilirubin,Total 0.4 mg/dL (0.2-1.3); Blood Urea Nitrogen 6 mg/dL (7-17); Calcium 8.5 mg/dL (8.4-10.2); Carbon Dioxide 21 mmol/L (22-30); Chloride 107 mmol/L (98-107); Estimated CRCL calculation 103 ml/min; Estimated Glomerular Filt Rate > 60; Glucose 99 mg/dL (65-110); Potassium 4.0 mmol/L (3.4-5.0); Sodium 138 mmol/L (137-145); Total Protein 6.9 g/dL (6.3-8.2)
[2025-09-01 06:12] VITALS: BP 131/79; PULSE 66; RESP 18; TEMP 36.4; O2SAT 100
--- NOTE | 2025-09-01 07:37 | PM.IMPN ---
Progress Note: A&P Assessment and Plan (1) Cholelithiasis: Qualifiers: Biliary obstruction: without biliary obstruction Cholecystitis presence: without cholecystitis Cholelithiasis location: gallbladder Qualified Code(s): K80.20 - Calculus of gallbladder without cholecystitis without obstruction Code(s): K80.20 - Calculus of gallbladder without cholecystitis without obstruction Status: Acute Assessment and Plan: NPO midnight. HIDA scan. Morphine 2 mg IV q.2 hours p.r.n.. Normal saline at 125 cc/hour. Protonix 40 mg IV q.a.m.. Zofran p.r.n. 08/31: Per pt, surgery team to perform lap hailey this afternoon. HIDA cancelled. +RUQ pain, denies N/V. (2) Right upper quadrant abdominal pain: Code(s): R10.11 - Right upper quadrant pain Status: Acute Assessment and Plan: See above She had 4 soft stools on day of admission, possible colitis identified on CT. Continue to monitor. 08/31: +Greene's sign (3) Enlarged lymph node: Code(s): R59.9 - Enlarged lymph nodes, unspecified Status: Acute Assessment and Plan: Follow-up on para-aortic lymph node enlargement/mass outpatient. Plan Urinalysis is greatly contaminated. Follow-up on urine culture or repeat urinalysis, the patient has no symptomatology to indicate infection. Leukocytosis may be reactive to dehydration or nausea or vomiting, check procalcitonin, if elevated will start antibiotics. -->Procalcitonin negative Up ad bev NPO. Normal saline infusion SCDs. Patient would like to be full code Admit for observation to medical floor. Subjective Date/time seen: 09/01/25 07:37 Interval history: 35-year-old female with class 2 obesity, history of and no other abdominal surgeries, GERD with p.r.n. use of omeprazole, ADHD, presents to [facility] ER on 08/30/2025 as she woke up from her sleep with right upper quadrant pain which was severe and associated with nausea and vomiting multiple times. She had a speckle of blood 1 time and since then it has been bilious. Patient had 4 bowel movements today which were soft but no diarrhea otherwise. Review of Systems Review of Systems: All systems reviewed & are unremarkable except as noted in HPI and below (Subjective) Objective Data Vital Signs Vital Signs: Vital Signs - 24 hr 08/31/25 08:00 08/31/25 09:11 08/31/25 12:00 Temperature 97.3 F L 97.1 F L Pulse Rate 74 79 Respiratory Rate 18 20 20 Blood Pressure 107/65 102/67 Pulse Oximetry 99 99 98 Oxygen Delivery Room Air Oxygen Flow Rate 08/31/25 14:12 08/31/25 14:15 08/31/25 17:21 Temperature 97.8 F 97.6 F 97.5 F L Pulse Rate 73 75 115 H Respiratory Rate 18 18 24 H Blood Pressure 111/73 121/80 106/57 L Pulse Oximetry 99 100 100 Oxygen Delivery Room Air Simple Face Mask Oxygen Flow Rate 8 08/31/25 17:35 08/31/25 17:40 08/31/25 17:50 Temperature Pulse Rate 107 H 95 Respiratory Rate 20 20 Blood Pressure 128/74 119/70 Pulse Oximetry 100 99 Oxygen Delivery Simple Face Mask Room Air Room Air Oxygen Flow Rate 8 08/31/25 18:05 08/31/25 18:20 08/31/25 18:45 Temperature 97.2 F L 97.9 F Pulse Rate 97 94 85 Respiratory Rate 20 20 19 Blood Pressure 112/60 104/66 120/68 Pulse Oximetry 100 97 99 Oxygen Delivery Room Air Room Air Oxygen Flow Rate 08/31/25 18:45 08/31/25 19:00 08/31/25 20:00 Temperature 97.9 F 97.6 F Pulse Rate 78 80 Respiratory Rate 18 19 18 Blood Pressure 118/65 121/69 Pulse Oximetry 99 99 100 Oxygen Delivery Room Air Oxygen Flow Rate 08/31/25 20:45 09/01/25 00:00 09/01/25 04:00 Temperature 97.9 F 97.5 F L Pulse Rate 77 66 Respiratory Rate 18 18 Blood Pressure 105/59 L 131/79 Pulse Oximetry 99 100 Oxygen Delivery Room Air Oxygen Flow Rate 09/01/25 06:12 Temperature 97.5 F L Pulse Rate 66 Respiratory Rate 18 Blood Pressure 131/79 Pulse Oximetry 100 Oxygen Delivery Oxygen Flow Rate Intake/Output Intake/Output: Intake & Output 08/29/25 08/30/25 08/31/25 09/01/25 23:59 23:59 23:59 23:59 Intake Total 1000 2195.8 883.3 Output Total 1115 1330 Balance 1000 1080.8 446.7 Meds/Results Medications: Active Medications Generic Name Dose Route Start Last Admin Trade Name Freq PRN Reason Stop Dose Admin Acetaminophen 1,000 mg 08/31/25 17:27 Acetaminophen 500 Mg Tablet PO Q6H PRN Mild Pain (1-3) or Fever Hydrocodone Bitart/Acetaminophen 1 tab 08/31/25 17:27 Hydrocodone/Acetaminophen (*Crx) 5-325 Mg Tablet PO Q4H PRN Pain Rated 4-6 Sodium Chloride 1,000 mls @ 100 mls/hr 08/30/25 22:20 09/01/25 00:45 Normal Saline Iv IV CONT 100 mls/hr .Q10H MANNY Administration Piperacillin Sod/Tazobactam 50 mls @ 100 mls/hr 08/31/25 18:00 09/01/25 05:52 Sod 3.375 gm/ Sodium Chloride IVPB Infused [facility] Infusion Morphine Sulfate 4 mg 08/31/25 18:46 Morphine Sulfate (*Crx) 4 Mg/Ml Inj IV PUSH Q4H PRN Pain Rated 7-10 IF NPO Ondansetron HCl 4 mg 08/30/25 22:52 Ondansetron Inj 4 Mg/2 Ml Vial IV PUSH Q4H PRN Nausea And Vomiting Oxycodone HCl 5 mg 08/31/25 17:27 09/01/25 04:55 Oxycodone Hcl (*Crx) 5 Mg Tab Ir PO 5 mg Q4H PRN Administration Pain Rated 7-10 Pantoprazole Sodium 40 mg 09/01/25 09:00 Pantoprazole 40 Mg Tablet PO [facility] [place] Radiology Results: ITS Impressions Abdomen/Pelvis CT 08/30/25 16:43 IMPRESSION: 1. There is an enlarged 2.1 x 2.3 x 3.7 cm left low para-aortic lymph node or mass. Differential includes inflammatory/infectious process or malignant process. Consider a PET/CT. 2. Mild thickening of the edwards of the descending and sigmoid colon. Differential includes incomplete bowel wall distention versus colitis. 3. Cholelithiasis. No gallbladder wall thickening or pericholecystic fluid. Upper Quadrant Ultrasound 08/30/25 21:24 IMPRESSION: 1. Cholelithiasis with a normal-appearing gallbladder with positive sonographic Greene sign which is equivocal for acute cholecystitis. Consider HIDA scan for further evaluation. Labs Labs: Laboratory Results - last 24 hr 09/01/25 09/01/25 04:39 04:40 WBC 9.4 RBC 4.08 L Hgb 10.1 L Hct 33.1 L MCV 81.1 MCH 24.8 L MCHC 30.5 L RDW 16.0 H Plt Count 257 MPV 11.6 H Immature Gran % (Auto) 0.4 Neut % (Auto) 80.1 H Lymph % (Auto) 15.8 L [place] % (Auto) 3.4 Eos % (Auto) 0.0 Baso % (Auto) 0.3 Lymph # (Auto) 1.49 [place] # (Auto) 0.3 Eos # (Auto) 0.0 Baso # (Auto) 0.0 Abs Immat Gran (auto) 0.04 H Absolute Neuts (auto) 7.6 H Absolute Nucleated RBC 0.000 Nucleated RBC % 0.0 Sodium 138 Potassium 4.0 Chloride 107 Carbon Dioxide 21 L Anion Gap 10 BUN 6 L Creatinine 0.66 L Estim Creat Clear Calc 103 Estimated GFR > 60 Glucose 99 Calcium 8.5 Total Bilirubin 0.4 AST 27 ALT 21 Alkaline Phosphatase 60 Total Protein 6.9 Albumin 3.4 L Quality VTE Prophylaxis VTE prophylaxis: mechanical ordered
[2025-09-01] MEDS: PANTOPRAZOLE 40 MG TABLET PO (09:27)
--- NOTE | 2025-09-01 11:15 | PM.PNGS ---
Progress Note: A&P Assessment and Plan (1) Cholecystitis: Code(s): K81.9 - Cholecystitis, unspecified Status: Acute Assessment and Plan: Pod 1 status post laparoscopic cholecystectomy. A 15 Polish round Roberto drain was placed in the area of the gallbladder fossa due to some mild spillage and intense inflammation to the area. Patient tolerated the procedure well. Tolerated clear liquids. Advanced to regular diet today. Voiding appropriately. Has not walked much around the room. Encouraged ambulation. Once patient is ambulating more and tolerating a regular diet, she is surgically stable for discharge. Plan Discussed patient's case and plan of care with Dr. Melvin. Subjective Subjective Date/Time Seen: 09/01/25 11:15 Post Op day: 1 (laparoscopic cholecystectomy) Patient reports: no new complaints, feels better, still having pain and afebrile Interval history: Patient doing well today. She does complain of some pain surrounding the drain site. Voiding appropriately. No nausea or vomiting. No BM of flatus yet. Exam Const: General: comfortable and no acute distress Cardio: Rate: regular rate and bradycardic GI: Inspection: non-distended GI Palp: Yes Soft to palpation and Yes Tenderness to palpation present (GI) (epigastric, mostly around incisions) Auscultation: abnormal bowel sounds (hypoactive) Skin: General skin exam: normal color and no rashes or lesions noted Objective Data Vital Signs Vital Signs: Vital Signs - 24 hr 08/31/25 12:00 08/31/25 14:12 08/31/25 14:15 Temperature 97.1 F L 97.8 F 97.6 F Pulse Rate 79 73 75 Respiratory Rate 20 18 18 Blood Pressure 102/67 111/73 121/80 Pulse Oximetry 98 99 100 Oxygen Delivery Room Air Oxygen Flow Rate 08/31/25 17:21 08/31/25 17:35 08/31/25 17:40 Temperature 97.5 F L Pulse Rate 115 H 107 H Respiratory Rate 24 H 20 Blood Pressure 106/57 L 128/74 Pulse Oximetry 100 100 Oxygen Delivery Simple Face Mask Simple Face Mask Room Air Oxygen Flow Rate 8 8 08/31/25 17:50 08/31/25 18:05 08/31/25 18:20 Temperature 97.2 F L Pulse Rate 95 97 94 Respiratory Rate 20 20 20 Blood Pressure 119/70 112/60 104/66 Pulse Oximetry 99 100 97 Oxygen Delivery Room Air Room Air Room Air Oxygen Flow Rate 08/31/25 18:45 08/31/25 18:45 08/31/25 19:00 Temperature 97.9 F 97.9 F Pulse Rate 85 78 Respiratory Rate 19 18 19 Blood Pressure 120/68 118/65 Pulse Oximetry 99 99 99 Oxygen Delivery Room Air Oxygen Flow Rate 08/31/25 20:00 08/31/25 20:45 09/01/25 00:00 Temperature 97.6 F 97.9 F Pulse Rate 80 77 Respiratory Rate 18 18 Blood Pressure 121/69 105/59 L Pulse Oximetry 100 99 Oxygen Delivery Room Air Oxygen Flow Rate 09/01/25 04:00 09/01/25 06:12 09/01/25 09:31 Temperature 97.5 F L 97.5 F L Pulse Rate 66 66 Respiratory Rate 18 18 Blood Pressure 131/79 131/79 Pulse Oximetry 100 100 Oxygen Delivery Room Air Oxygen Flow Rate Intake/Output Intake/Output: Intake & Output 08/29/25 08/30/25 08/31/25 09/01/25 23:59 23:59 23:59 23:59 Intake Total 1000 2195.8 2235.0 Output Total 1115 1730 Balance 1000 1080.8 505.0 Meds/Results Medications: Active Medications Generic Name Dose Route Start Last Admin Trade Name Freq PRN Reason Stop Dose Admin Acetaminophen 1,000 mg 08/31/25 17:27 Acetaminophen 500 Mg Tablet PO Q6H PRN Mild Pain (1-3) or Fever Hydrocodone Bitart/Acetaminophen 1 tab 08/31/25 17:27 Hydrocodone/Acetaminophen (*Crx) 5-325 Mg Tablet PO Q4H PRN Pain Rated 4-6 Sodium Chloride 1,000 mls @ 100 mls/hr 08/30/25 22:20 09/01/25 09:28 Normal Saline Iv IV CONT 0 mls/hr .Q10H MANNY Infusion Piperacillin Sod/Tazobactam 50 mls @ 100 mls/hr 08/31/25 18:00 09/01/25 09:26 Sod 3.375 gm/ Sodium Chloride IVPB 100 mls/hr Q8H MANNY Administration Morphine Sulfate 4 mg 08/31/25 18:46 Morphine Sulfate (*Crx) 4 Mg/Ml Inj IV PUSH Q4H PRN Pain Rated 7-10 IF NPO Ondansetron HCl 4 mg 08/30/25 22:52 Ondansetron Inj 4 Mg/2 Ml Vial IV PUSH Q4H PRN Nausea And Vomiting Oxycodone HCl 5 mg 08/31/25 17:27 09/01/25 09:31 Oxycodone Hcl (*Crx) 5 Mg Tab Ir PO 5 mg Q4H PRN Administration Pain Rated 7-10 Pantoprazole Sodium 40 mg 09/01/25 09:00 09/01/25 09:27 Pantoprazole 40 Mg Tablet PO 40 mg QAM MANNY Administration Radiology Results: ITS Impressions Abdomen/Pelvis CT 08/30/25 16:43 IMPRESSION: 1. There is an enlarged 2.1 x 2.3 x 3.7 cm left low para-aortic lymph node or mass. Differential includes inflammatory/infectious process or malignant process. Consider a PET/CT. 2. Mild thickening of the edwards of the descending and sigmoid colon. Differential includes incomplete bowel wall distention versus colitis. 3. Cholelithiasis. No gallbladder wall thickening or pericholecystic fluid. Upper Quadrant Ultrasound 08/30/25 21:24 IMPRESSION: 1. Cholelithiasis with a normal-appearing gallbladder with positive sonographic Greene sign which is equivocal for acute cholecystitis. Consider HIDA scan for further evaluation. Labs Labs: Laboratory Results - last 24 hr 09/01/25 09/01/25 04:39 04:40 WBC 9.4 RBC 4.08 L Hgb 10.1 L Hct 33.1 L MCV 81.1 MCH 24.8 L MCHC 30.5 L RDW 16.0 H Plt Count 257 MPV 11.6 H Immature Gran % (Auto) 0.4 Neut % (Auto) 80.1 H Lymph % (Auto) 15.8 L [place] % (Auto) 3.4 Eos % (Auto) 0.0 Baso % (Auto) 0.3 Lymph # (Auto) 1.49 [place] # (Auto) 0.3 Eos # (Auto) 0.0 Baso # (Auto) 0.0 Abs Immat Gran (auto) 0.04 H Absolute Neuts (auto) 7.6 H Absolute Nucleated RBC 0.000 Nucleated RBC % 0.0 Sodium 138 Potassium 4.0 Chloride 107 Carbon Dioxide 21 L Anion Gap 10 BUN 6 L Creatinine 0.66 L Estim Creat Clear Calc 103 Estimated GFR > 60 Glucose 99 Calcium 8.5 Total Bilirubin 0.4 AST 27 ALT 21 Alkaline Phosphatase 60 Total Protein 6.9 Albumin 3.4 L
--- NOTE | 2025-09-01 13:12 | PM.DS ---
DS: Admitting Diagnosis Discharge Date 09/01/2025 Admitting Diagnosis Right Upper Quadrant Pain Cholelithiasis DS: Discharge Diagnosis Discharge Diagnosis (1) Cholecystitis: Code(s): K81.9 - Cholecystitis, unspecified Status: Acute (2) Cholelithiasis: Qualifiers: Biliary obstruction: without biliary obstruction Cholecystitis presence: without cholecystitis Cholelithiasis location: gallbladder Qualified Code(s): K80.20 - Calculus of gallbladder without cholecystitis without obstruction Code(s): K80.20 - Calculus of gallbladder without cholecystitis without obstruction Status: Acute (3) Right upper quadrant abdominal pain: Code(s): R10.11 - Right upper quadrant pain Status: Acute Plan DS: Summary Hospital Course Reason for hospitalization: Copied from [facility] 08/30: 35-year-old female with class 2 obesity, history of and no other abdominal surgeries, GERD with p.r.n. use of omeprazole, ADHD, presents to [facility] ER on 08/30/2025 as she woke up from her sleep with right upper quadrant pain which was severe and associated with nausea and vomiting multiple times. She had a speckle of blood 1 time and since then it has been bilious. Patient had 4 bowel movements today which were soft but no diarrhea otherwise. She denies fever, chest pain, shortness of breath, suprapubic pain, dysuria, foul-smelling or odd appearing urine. ER evaluation reveals a cooperative female who is hemodynamically intact and saturating well on room [place]. [place] [address], hemoglobin 12.7, platelets 343, Chem 7 panel unremarkable, LFTs within normal limits, beta hCG negative, urinalysis with turbid urine, many squamous cells, WBC, bacteria, leukocyte esterase, ketones. CT abdomen pelvis with contrast demonstrates enlarged para-aortic lymph node or mass, mildly thickened edwards of the descending and sigmoid colon, cholelithiasis, no gallbladder wall thickening or pericholecystic fluid. Subsequently a right upper quadrant ultrasound demonstrates cholelithiasis with positive sonographic Greene sign. She was given Protonix, morphine, Toradol, Zofran, 1 L normal saline bolus, Pepcid 20 mg IV x1. Hospital Course: 35-year-old female with class 2 obesity, history of and no other abdominal surgeries, GERD with p.r.n. use of omeprazole, ADHD, presents to [facility] ER on 08/30/2025 as she woke up from her sleep with right upper quadrant pain which was severe and associated with nausea and vomiting multiple times. She had a speckle of blood 1 time and since then it has been bilious, treated for acute cholecystitis. S/P lap hailey 08/[address] Melvin. Doing well post op. Tolerating a diet and ambulating prior to discharge. She will follow up with surgery outpatient. Status at Discharge Cognitive/behavioral status at discharge: A&Ox4 Time Spent with Patient Time attestation: Total time spent providing and/or coordinating discharge services:58 minutes Specific discharge activities: 35 minutes Exam Narrative: General - Awake and alert. No acute distress Eyes - PERRLA, EOM intact ENT - No thrush, No erythema Neck - No noticeable or palpable swelling Lymph Nodes - No lymphadenopathy Cardiovascular - RRR no m/r/g, no JVD Lungs: Clear to auscultation, No wheezing or use of accessory muscles, no crackles Skin - Skin warm and dry, or rashes. Surgical incision sites cleaned Abdomen - Normal bowel sounds, abdomen soft and nontender Extremities - No edema, cyanosis or clubbing Musculoskeletal - 5/5 strength, normal range of motion, no swollen or erythematous joints. Neurological ? Alert and oriented x 3, CN 2-12 grossly intact. Psych: Normal mood and affect DS: Data Data Completed and Pending Pending studies at discharge: Pending at discharge 08/31/25 16:46 Surgical [PTH] Routine Labs on day of discharge: Labs from last 24 hours 09/01/25 09/01/25 04:40 04:39 WBC 9.4 RBC 4.08 L Hgb 10.1 L Hct 33.1 L MCV 81.1 MCH 24.8 L MCHC 30.5 L RDW 16.0 H Plt Count 257 MPV 11.6 H Immature Gran % (Auto) 0.4 Neut % (Auto) 80.1 H Lymph % (Auto) 15.8 L [place] % (Auto) 3.4 Eos % (Auto) 0.0 Baso % (Auto) 0.3 Lymph # (Auto) 1.49 [place] # (Auto) 0.3 Eos # (Auto) 0.0 Baso # (Auto) 0.0 Abs Immat Gran (auto) 0.04 H Absolute Neuts (auto) 7.6 H Absolute Nucleated RBC 0.000 Nucleated RBC % 0.0 Sodium 138 Potassium 4.0 Chloride 107 Carbon Dioxide 21 L Anion Gap 10 BUN 6 L Creatinine 0.66 L Estim Creat Clear Calc 103 Estimated GFR > 60 Glucose 99 Calcium 8.5 Total Bilirubin 0.4 AST 27 ALT 21 Alkaline Phosphatase 60 Total Protein 6.9 Albumin 3.4 L Discharge Plan Discharge Attending physician on discharge: Meron Pham Consulting providers: Dean Mckeon; Ludy Spangler; Meron Pham; Hai Cobos; Mandi Kinney; Rufina Yi; Larry Melvin; Jermain Drummond; Rizwan Gallagher; Woo Myers Discharging Clinician: Meron Pham Anticipated Discharge Date/Time: 09/01/25 15:38 Patient Disposition: Home Activity: other - see discharge instructions Diet: regular Wound Care Instructions: follow printed instructions Discharge Instructions: May remove bandage from drain site in 24 hours and shower. No soaking in a bath, pool, ty, or any other body of water. No lifting more than 15-20 pounds for the next two weeks. If no bowel movement for three days, take 1 oz (30 mL) Milk of Magnesia or MiraLax 17g 1 to2 times daily. Up and walking 10-30 minutes 3 times a day. Resume previous home medications. Prescription medications sent to your pharmacy. Take Tylenol 500mg every 6 hours and Ibuprofen 600mg every 6 hours for the first 2 days, then as needed. You may apply ice to the surgical site as needed (30 min on, 30 min off). No driving for 3 days after surgery or while taking narcotic pain medication. You may resume your regular diet. If you experience nausea, try dry toast, crackers, and 7-UP. If nausea or vomiting persists, contact your surgeon?s office. Call the office at to schedule a follow up appointment in 10-14 days for wound check. Call the office or go to the Emergency Department for: Bleeding or increased drainage from wounds Severe song Vomiting Fever greater than 101 degrees Revised March 2019 Patient Instructions: Antibiotic Form Patient Language: Irish Stand Alone Forms: General Discharge Information, Work/School Release IP Follow-up/Referrals: Larry Melvin MD [Physician, General Surgery] - Call for Appointment Referral Note: 2 weeks Discharge Medications: New polyethylene glycol 3350 [Miralax] 17 gram Powder In Packet 17 g PO BID PRN (Reason: constipation) 5 Days Qty: 10 0RF acetaminophen 500 mg Tablet 1,000 mg PO Q6H PRN (Reason: Mild Pain (1-3) Or Fever) Qty: 30 0RF ondansetron 4 mg tablet,disintegrating 4 mg PO Q6H PRN (Reason: nausea and vomiting) Qty: 5 0RF oxycodone 5 mg tablet 5 mg PO Q4H PRN (Reason: pain) Qty: 20 0RF ibuprofen 600 mg tablet 600 mg PO Q6H PRN (Reason: pain) Qty: 30 0RF Continued lisdexamfetamine 50 mg capsule 50 mg PO QAM medroxyprogesterone 150 mg/mL suspension 150 mg IM [id number] Date of admission: 08/30/25 22:20 Primary Care Provider: PHYSICIAN,NON DESTRUCTIVE TESTING SCIENTIST Admitting Provider: Arlene Leone Attending physician on admission: Arlene Leone Condition: Stable Quality VTE Prophylaxis VTE prophylaxis: pharmacologic ordered Hospitalist MIPS Heart Failure (Exclusion) Patient has history of Heart Transplant or Left Ventricular Assistive Device?: No IF YES, STOP HERE Heart Failure (Qualifier) Patient has current or prior documentation of LVEF less than or equal to 40%, or mod/servere depressed LVSF?: No IF NO, STOP HERE
[2025-09-01 13:21] VITALS: BP 116/69; PULSE 76; RESP 16; TEMP 36.2; O2SAT 100
[2025-09-03 14:26] LABS: Estimated CRCL calculation 86 ml/min; Estimated Glomerular Filt Rate > 60
== END 2025-09-01 17:58 | disposition home or self-care (01) ==
LOC: ANHED 21:40 → ANH2MED 22:56
PROVIDERS: Nurse Practitioner Family; Surgery; Admitting Provider General Practice; Emergency Provider Physician Assistant; Visit Provider General Practice
PROC: 0FT44ZZ Resection of Gallbladder, Percutaneous Endoscopic Approach (ICD-10-PCS; CPT 47562; principal; 2025-08-31 15:30)
DX: K80.62 Calculus of gallbladder and bile duct with acute cholecystitis without obstruction (principal); R59.9 Enlarged lymph nodes, unspecified; K21.9 Gastro-esophageal reflux disease without esophagitis; F90.9 Attention-deficit hyperactivity disorder, unspecified type; E66.9 Obesity, unspecified; Z68.35 Body mass index [BMI] 35.0-35.9, adult
CPT/HCPCS: 47562; 36415; 74177; 76705; 80053; 81001; 81025; 82565; 83690; 83735; 84145; 84702; 85025; 87086; 88304; 96361; 96374; 96375; 96376; 99285; J0690; A9270; G0378; J1100; J1171; J1885; J2003; J2004; J2250; J2270; J2405; J2470; J2543; J2704; J3010; J7030; J7120; Q9967